=== PATIENT | female | born 1995 | race Hispanic/Latino ===

== ENCOUNTER 2017-03-17 14:12 | Emergency (ER) | payer OTHER, SELFPAY ==
[2017-03-17 15:05] LABS: #Eosinphils 0.1 thou/uL (0.0-0.7); #Lymphocytes 1.2 thou/uL (1.20-3.40); #Monocytes 0.5 thou/uL (0.11-0.59); #Neutrophils 7.5 thou/uL (1.40-6.50); %Basophils 0.3 % (0.0-1.0); %Eosinophils 0.7 % (0.0-10.0); %Lymphocytes 12.8 % (21.0-51.0); %Monocytes 5.6 % (0.0-10.0); Hematocrit 44.4 % (36.0-47.0); Mean Platelet Volume 8.3 fL (7.4-10.4); White Blood Cell (WBC) Count 9.3 thou/uL (4.8-10.8)
[2017-03-17 15:26] LABS: ALT (SGPT) 24 U/L (8-55); AST (SGOT) 22 U/L (5-34); Alkaline Phosphatase 86 U/L (40-150); Anion Gap 12 mmol/L (10-20); BUN (Urea Nitrogen) 11 mg/dL (7.0-18.7); Bilirubin, Total 0.6 mg/dL (0.2-1.2); Calc. Creatinine Clearance 0 mL/min (70-130); Calcium 9.6 mg/dL (7.8-10.44); Carbon Dioxide 23 mmol/L (22-29); Chloride 106 mmol/L (98-107); Estimated GFR-MDRD Greater than 90; Globulin 3.7 g/dL (2.4-3.5); Lipase 23 U/L (8-78)
[2017-03-17 16:45] LABS: Bilirubin Negative (Negative); Blood, Urine Negative (Negative); Glucose, Urine (Dipstick) Negative (Negative); Ketone, Urine Negative (Negative); Nitrite Negative (Negative); Protein, Urine (Dipstick) Negative (Neg-Trace); Urobilinogen 0.2 mg/dL (0.2-1.0)
[2017-03-17] MEDS ORDERED: Ondansetron ODT 4 MG TAB ONE ×2 (17:11→20:59)
[2017-03-17] MEDS ORDERED: Ketorolac Tromethamine 30 MG/ML VIAL ONE (17:11)
--- NOTE | 2017-03-17 18:00 | CT ---
CT OF ABDOMEN AND PELVIS PERFORMED WITH INTRAVENOUS CONTRAST ENHANCEMENT: 03/17/17 HISTORY: Abdominal pain and diarrhea. COMPARISON: A 05/24/15 study. The lung bases are clear. The liver and spleen show no focal abnormalities. The pancreas and gallbladder regions are unremarkab le. The right and left adrenal glands and right and left kidneys are normal in size and appearance. There is no significant periaortic or mesenteric adenopathy. No signs of obstruction. CT OF PELVIS PERFORMED WITH CONTRAST ENHANCEMENT: IUD is in place. There us no evidence of adenopathy or mass. No evidence free fluid. The appendix is normal. Stable appearance to a left femoral neck sclerotic bone lesion which has benign characteristics. IMPRESSION: No acute abnormalities of the abdomen or pelvis. POS: MARLOH
[2017-03-17] MEDS ORDERED: Morphine 4 MG/ML VIAL ONE (18:46)
== END 2017-03-17 21:04 | disposition home or self-care (01) ==
LOC: ERS 14:12
DX: K52.9 Noninfective gastroenteritis and colitis, unspecified (principal); E66.9 Obesity, unspecified
CPT/HCPCS: 36415; 74177; 80053; 81003; 83690; 84703; 85025; 96361; 96374; 96375; J1885; J2270; Q0162

== ENCOUNTER 2017-08-19 22:09 | Emergency (ER) | payer SELFPAY ==
[2017-08-19] MEDS ORDERED: Ondansetron ODT 8 MG TAB ONE (22:42)
== END 2017-08-19 23:20 | disposition home or self-care (01) ==
LOC: ERS 22:09
DX: R11.2 Nausea with vomiting, unspecified (principal); R19.7 Diarrhea, unspecified; E66.9 Obesity, unspecified; Z79.899 Other long term (current) drug therapy
CPT/HCPCS: 99283

== ENCOUNTER 2018-02-27 11:55 | Emergency (ER) | payer OTHER, SELFPAY ==
--- NOTE | 2018-02-27 13:04 | RAD ---
RIGHT KNEE RADIOGRAPHS 4 VIEWS: DATE: 02/27/2018. PROVIDED CLINICAL HISTORY: Right knee pain status post injury. FINDINGS: No evidence for a fracture or other acute osseous abnormality. If there is persistent clinical sonny rn, conservative management and followup imaging are advised. IMPRESSION: As above. POS: VIKTORIA
== END 2018-02-27 13:53 | disposition home or self-care (01) ==
LOC: ERS 11:55
DX: M25.561 Pain in right knee (principal); E66.9 Obesity, unspecified; W51.XXXA Accidental striking against or bumped into by another person, initial encounter

== ENCOUNTER 2019-05-04 22:00 | Day surgery (SDC) | payer OTHER ==
[2019-05-04 22:47] VITALS: BP 133/70; TEMP 97.8; BMI 57.5
[2019-05-04] MEDS ORDERED: FLU VACC QS2019-20(6MOS UP)/PF 60 MCG/0.5 ML SYRINGE IM ONE (23:00)
[2019-05-04 23:17] LABS: Amnisure Test No Membranes Rupture (No Rupture)
[2019-05-04 23:18] LABS: Amnisure Internal Control QC ACCEPTABLE (ACCEPTABLE)
[2019-05-04] MEDS ORDERED: hydrALAZINE 20 MG/ML VIAL SLOW IVP PRN (23:51)
--- NOTE | 2019-05-05 | PDOC.FPROB ---
FMR OB H&P: HPI - History of Present Illness Chief Complaint: leakage of fluids History of Present Illness: 24yo @ 38.3 by 2T US complicated by morbid obesity and GBS + presents for concern for leakage of fluid. States had onset of leakage of fluid @ 1930 yesterday, small intermittent leakage of clear fluid, worse with movement. Denies any vaginal bleeding, change in vaginal discharge. Endorses good good movement. Intermittent contractions that have increased since presentation. No CP, SOB, fever/chills, N/v, abd pain.Does endorse vaginal itching. Sexual intercourse 2 days ago. 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 - Family History Family History: non contributory FMR OB H&P: Medications - Current Home Medications: Medication Instructions Recorded Confirmed Type Vitamin 1 tablet PO DAILY 05/04/19 05/04/19 History Allergies/Adverse Reactions: Allergies Allergy/AdvReac Type Severity Reaction Status Date / Time No Known Allergies Allergy Unverified 05/04/19 22:40 FMR OB H&P: ROS - Review of Systems General: denies: fever/chills, weight/appetite/sleep changes, night sweats Eyes: denies: vision changes ENT: denies: nasal congestion, rhinorrhea Cardiovascular: denies: chest pain, palpitation Respiratory: denies: cough, congestion, shortness of breath Gastrointestinal: denies: abdominal pain, nausea, vomiting, diarrhea Genitourinary (Female): reports: vaginal discharge, contractions. denies: incontinence, dysuria, vaginal bleeding FMR OB H&P: Vital Signs - Maternal Vital signs: Vital Signs - First Documented Temp Pulse Resp BP Pulse Ox 97.8 F 92 18 133/70 100 05/04/19 22:04 05/04/19 22:04 05/04/19 22:04 05/04/19 22:04 05/04/19 22:04 - Heart Tones Baseline: 140 Variability: moderate Acceleration: present Deceleration: absent Category: category 1 [place] contractions every: 3min FMR OB H&P: Physical Exam - Physical Exam General: NAD, awake, alert and oriented HEENT: MMM Neck: supple Heart: RRR, normal S1/S2, no murmurs/rubs/gallops, no edema General: CTAB, no respiratory distress, good air movement, no rales/rhonchi, no wheezing Abdomen: soft, gravid, non-tender, bowel sound present Skin: no rash Psychiatric: intact recent and remote memory, good judgement and insight, normal mood and affect - Pelvic Exam Vulva: normal hair distribution SVE: /-2 FMR OB H&P: Results - Labs Lab results: Laboratory Results - last 24 hr 05/04/19 23:00 Amnio Swab Test No Membranes Rupture FMR OB H&P: A/P - Problem List (1) Term Current Visit: Yes Status: Acute Code(s): Z34.90 - ENCNTR FOR SUPRVSN OF NORMAL , UNSP, UNSP TRIMESTER (2) Morbid obesity Current Visit: Yes Status: Acute Code(s): E66.01 - MORBID (SEVERE) OBESITY DUE TO EXCESS CALORIES Disposition: 24yo @ 38.3 by 2T US complicated by morbid obesity and GBS + presents for concern for leakage of fluid. #Labor check, term SIUP - 38.3wk by 2T US - amnisure obtained and negative - spec exam and no pooling or LOF with cough - VP3 obtained - Cat 1 strip, contractions increased to q3min - appears intact, maternal VSS, will allow ambulation and recheck in 2 hours for change - suspect contractions with bladder loss - dispo pending recheck and monitoring #GBS + - if admitted for labor, will need ppx #Morbid obesity - LGA baby on growth US - monitor - has induction date of 05/11 Dispo: Pending recheck. Discussion: Date/Time: 05/04/19 1968 This H&P was discussed with Dr. Lamar and Dr. Turner who agree with the above documentation and plan. Addendum - Attending - Attending Attestation Date/Time: 05/05/19226 I personally evaluated the patient and discussed the management with Dr. Naun Hardin I agree with the History, Examination, Assessment and Plan documented above with any addition or exceptions noted below- 24yo @ 38.3 by 2T US complicated by morbid obesity and GBS + presents for concern for leakage of fluid. States had onset of leakage of fluid @ 1930 yesterday, small intermittent leakage of clear fluid, worse with movement. Denies any vaginal bleeding, change in vaginal discharge. Endorses good good movement. Intermittent contractions that have increased since presentation. No cervical change after walking x 2 hours. Category 1 FHTs. Will d/c home with labor precautions
[2019-05-05] MEDS ORDERED: Morphine 10 MG/ML VIAL ONE (01:56)
--- NOTE | 2019-05-05 02:06 | PDOC.BPN ---
- Brief Progress Note Patient went walking for 2 hours and was rechecked. No significant cervical change. Patient still 3cm and posterior. Patient with continued contractions. Category I strip. Given no change, patient does not appear to be in labor at this time. Discussed option for pain medication prior to discharge. Patient desires pain medication. 10 mg of morphine given. Will monitor strip for additional time given administration of medication. Patient to be discharged home. Advised to return if contractions get 3-4 minutes apart and strong or if loss of fluid noted. Patient agreeable with plan. Luana Lamar, DO PGY-3
[2019-05-05] MEDS ORDERED: Morphine 10 MG/ML VIAL IM SCH (02:15)
== END 2019-05-05 02:20 | disposition home or self-care (01) ==
LOC: L&D/OP 22:00
PROVIDERS: ATTEND Family Medicine
DX: O99.89 Other specified diseases and conditions complicating pregnancy, childbirth and the puerperium (principal); N89.8 Other specified noninflammatory disorders of vagina; O47.1 False labor at or after 37 completed weeks of gestation; O99.213 Obesity complicating pregnancy, third trimester; E66.01 Morbid (severe) obesity due to excess calories; O99.820 Streptococcus B carrier state complicating pregnancy; Z3A.38 38 weeks gestation of pregnancy
CPT/HCPCS: 84112; 87480; 87510; 87660; 99285; J2270

== ENCOUNTER 2019-05-05 22:29 | Inpatient (IN) | payer OTHER ==
[2019-05-05 22:55] VITALS: BMI 57.5
[2019-05-05] MEDS ORDERED: hydrALAZINE 20 MG/ML VIAL SLOW IVP PRN (23:26)
--- NOTE | 2019-05-05 23:44 | PDOC.FPROB ---
FMR OB H&P: HPI - History of Present Illness Chief Complaint: contractions History of Present Illness: 24yo @ 38.5 by 16.1wk sono US complicated by morbid obesity and GBS + presents contractions. Pt was seen yesterday in L&D triage for similar concerns with leakage of fluid. At that time was found to be amnisure negative and no pooling on spec exam. States she still has occasional, small, intermittent leakage of fluid but no sudden gush. Does endorse thickening of vaginal discharge with mucous and small spotting with wiping after using restroom. States contractions have increased today and at one point were every 1-2min and increased intensity, currently maddi every 4-5min but intensity is still the same. Denies any CP, SOB, fever/chills, n/v, dysuria. Endorses good movement. No BARRY or RUQ pain. States say MFM on 05/03 and was verbally told was ready to delivery when primary OB was comfortable. Primary Care Physician: APARNA Vargas FMR OB H&P: Current - Care : 2 Para: 1001 Gestational age: 38.5 Due date: 05/15/19 Dating Criteria: 2T US - OB Labs Blood type: A RH: positive Antibody Screen: negative HIV: negative RPR: negative HepBsAg: negative Rubella: immune Quad screen: negative 1 hour gtt: neg GBS: positive H&H: 10.9 - Additional Ultrasound Additional: [place] 99% on recent growth US. FMR OB H&P: History - Past Medical History PMH: none - OB History OB History: Previous delivery at term. No complications. 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 - Surgical History Sx History: none - Social History Social History: no tob, illicits, EtOH - Family History Family History: non contributory FMR OB H&P: Medications - Current Home Medications: Medication Instructions Recorded Confirmed Type Vitamin 1 tablet PO DAILY 05/04/19 05/05/19 History Allergies/Adverse Reactions: Allergies Allergy/AdvReac Type Severity Reaction Status Date / Time No Known Allergies Allergy Verified 05/05/19 22:55 FMR OB H&P: ROS - Review of Systems General: denies: fever/chills, weight/appetite/sleep changes, fatigue Eyes: denies: vision changes, double vision, scotomas ENT: denies: nasal congestion, rhinorrhea, sore throat Cardiovascular: denies: chest pain, palpitation Respiratory: denies: cough, congestion, shortness of breath Gastrointestinal: denies: abdominal pain, nausea, vomiting Genitourinary (Female): reports: vaginal discharge, contractions. denies: incontinence, dysuria Integumentary: denies: rash FMR OB H&P: Vital Signs - Maternal Vital signs: BP 142/73, 138/75, 136/71. HR 108, O2 99on RA. - Heart Tones Baseline: 130 Variability: moderate Acceleration: present Deceleration: absent Category: category 1 [place] contractions every: 4-5 min FMR OB H&P: Physical Exam - Physical Exam General: NAD, awake, alert and oriented (breathing through contractions), other (morbid obese) HEENT: PERRLA, EOMI, MMM, conjunctiva clear, other (acanthosis nigricans) Neck: supple, trachea midline Heart: RRR, normal S1/S2, no murmurs/rubs/gallops, pulses present, no edema General: CTAB, no respiratory distress, good air movement, no rales/rhonchi, no wheezing Abdomen: soft, gravid, non-tender, bowel sound present Musculoskeletal: FROM in all four extremities Neurological: no focal deficit Skin: no rash Psychiatric: intact recent and remote memory, good judgement and insight, normal mood and affect FMR OB H&P: A/P - Problem List (1) Morbid obesity Current Visit: No Status: Acute Code(s): E66.01 - MORBID (SEVERE) OBESITY DUE TO EXCESS CALORIES (2) Term Current Visit: No Status: Acute Code(s): Z34.90 - ENCNTR FOR SUPRVSN OF NORMAL , UNSP, UNSP TRIMESTER Disposition: 24yo @ 38.5 by 16.1wk US complicated by morbid obesity and GBS + presents for increased contractions. #Labor check, term SIUP - amnisure and spec exam neg for SROM on labor check yesterday in L&D - VP3 negative yesterday - SVE /-2 @2250, more dilated from yesterday check of /-2 - recheck @0110, -2 - Cat 1 strip, contractions q4-5min with increased intensity - recheck @ 0600, 5/-2 - admit for medical IOL, augmentation with pit - desires epidural - cont to monitor with q2h checks #gHTN, new diagnosis - BP 142/73 at presentation, over 4 hours apart had elevated by of SBP 155 - declared as gHTN - no previous history of gHTN or PreE - risk factors with morbid obesity - CBC, CMP obtained and WNL - Urine Pr/Cr 0.14 - gHTN indication for medical IOL @ >37wks #GBS + - Yoshi #Morbid obesity - LGA baby on growth US - has induction date of 05/11 - followed by MFM and seen on 05/03, verbal report from pt that infant >95% [place] and no mention of any problems with fluid, or on BPP #No history of GC/C testing - will obtain urine PCR Dispo: gHTN indication for medical IOL. Will admit for IOL. Discussion: Date/Time: 05/05/19 6088 This H&P was discussed with Dr. Lamar and Dr. Cali who agree with the above documentation and plan. Addendum - Attending - Attending Attestation Date/Time: 05/06/19 0665 I personally evaluated the patient and discussed the management with Dr. Hardin I agree with the History, Examination, Assessment and Plan documented above with any addition or exceptions noted below. present for labor r/o. Ctx unresolved with IV fluids stadol. Patient changed from 4 cm ->5 cm. Baseline SBP high 130s. Patient has now had 3 SBP >140 (142, 148, 155). Will admit for medical IOL/augmentation of labor for new diagnosis of gHTN. Patient has concern for LGA infant on last MFM report and recommended no prolonged second stage of labor or operative vaginal delivery. If patient has difficulty with descent or pushing, will have low threshold to proceed with pLTCS. GBS positive, PNC started at time of decision for admission. Pitocin for labor augmentation as needed.
[2019-05-06 00:10] LABS: #Basophils 0.1 thou/uL (0.0-0.2); #Lymphocytes 2.1 thou/uL (1.20-3.40); #Monocytes 0.7 thou/uL (0.11-0.59); %Basophils 0.8 % (0.0-1.0); %Eosinophils 0.5 % (0.0-10.0); %Lymphocytes 23.6 % (21.0-51.0); %Neutrophils 67.2 % (42.0-75.0); Hemoglobin 11.2 g/dL (12.0-16.0); Mean Corpuscular HGB CONC 34.2 g/dL (32.0-36.0); Mean Corpuscular Hemoglobin 27.2 pg (27.0-31.0); Mean Corpuscular Volume 79.3 fL (78.0-98.0); Mean Platelet Volume 8.7 fL (7.4-10.4); Platelet Count 234 thou/uL (130-400); RBC Distribution Width 15.3 % (11.5-14.5); Red Blood Cell (RBC) Count 4.11 mill/uL (4.20-5.40)
[2019-05-06 00:28] LABS: ALT (SGPT) 12 U/L (8-55); AST (SGOT) 15 U/L (5-34); Albumin 3.3 g/dL (3.5-5.0); Alkaline Phosphatase 131 U/L (40-110); Anion Gap 13 mmol/L (10-20); BUN (Urea Nitrogen) 10 mg/dL (7.0-18.7); Bilirubin, Total 0.2 mg/dL (0.2-1.2); Calc. Creatinine Clearance 334 mL/min (70-130); Calcium 9.4 mg/dL (7.8-10.44); Carbon Dioxide 22 mmol/L (22-29); Chloride 106 mmol/L (98-107); Estimated GFR-MDRD Greater than 90; Globulin 3.5 g/dL (2.4-3.5); Glucose 94 mg/dL (70-105); Potassium 4.5 mmol/L (3.5-5.1); Protein, Total 6.8 g/dL (6.0-8.3); Sodium 136 mmol/L (136-145)
[2019-05-06 00:54] LABS: Creatinine, Urine 273.61 mg/dL (47-110)
[2019-05-06] MEDS ORDERED: Butorphanol Tartrate 1 MG/ML VIAL SLOW IVP SCH (04:15)
[2019-05-06] MEDS ORDERED: NS / Oxytocin 40 units/1000ml 1,000 ML IV PRN (05:52)
[2019-05-06] MEDS ORDERED: Promethazine HCl 25 MG/ML VIAL IM PRN ×2 (05:52→11:07)
[2019-05-06] MEDS ORDERED: Ondansetron PF 4 MG/2 ML Vial IVP PRN ×2 (05:52→11:07)
[2019-05-06] MEDS ORDERED: Lidocaine 1% (PF) 30 ML VIAL SC PRN (05:52)
[2019-05-06] MEDS ORDERED: Acetaminophen 500 MG TAB PO PRN (05:52)
[2019-05-06] MEDS ORDERED: Ibuprofen 800 MG TAB PO PRN (05:52)
[2019-05-06] MEDS ORDERED: hydrALAZINE 20 MG/ML VIAL SLOW IVP PRN (05:52)
[2019-05-06] MEDS ORDERED: Butorphanol Tartrate 1 MG/ML VIAL SLOW IVP PRN (05:52)
[2019-05-06] MEDS ORDERED: Penicillin G Potassium 5 MILL.UNITS in Sodium Chloride 0.9% 100 ML IVPB SCH (06:00)
[2019-05-06 07:04] LABS: Syphilis Antibody Nonreactive (Nonreactive); Syphilis Antibody Index 0.19 S/CO (<1.00 Non-Reactive)
[2019-05-06 07:08] LABS: HBSAg Index 0.15 S/CO (0-0.99); Hep B Surf Ag Non-Reactive S/CO (NonReactive)
[2019-05-06] MEDS: NS w/ Oxytocin 10 units 500 ML IV SCH (08:27)
[2019-05-06] MEDS ORDERED: Fentanyl 4 mcg/Bup 0.1% Cadd 100 ML ONE ×2 (09:23→17:51)
[2019-05-06] MEDS: Lactated Ringer's 1,000 ML IV SCH (10:58)
[2019-05-06] MEDS ORDERED: Naloxone HCl 0.4 mg/ml Vial IVP PRN ×2 (11:07)
[2019-05-06] MEDS ORDERED: Acetaminophen 325 MG TAB PO PRN (11:07)
[2019-05-06] MEDS ORDERED: Lactated Ringer's 500 ML IV PRN (11:07)
[2019-05-06] MEDS ORDERED: EPHEDRINE 25 MG/5 ML SYRINGE SLOW IVP PRN (11:07)
[2019-05-06] MEDS ORDERED: Communication Order-Pharmacy FS SCH (11:15)
[2019-05-06] MEDS: Penicillin G 2.5 MILL.units 2.5 MILL.UNITS in Premix Bag 1 BAG IVPB SCH ×2 (12:05→16:15)
--- NOTE | 2019-05-06 14:37 | PDOC.LDPN ---
Labor & Delivery Progress Note - Subjective Subjective: comfortable - Objective Vital signs reviewed and normal: yes General: NAD Uterine fundus: non tender SVE: /-2 Dilation: 5 Effacement: 50% Station: -2 FHT: category 1 Resuscitative measures: maternal IV fluids, maternal position change Plan: continue plan of care, pitocin for augmentation -: 24yo @ 38.5 by 16.1wk US complicated by morbid obesity and GBS + presents for increased contractions. #Labor check, term SIUP - amnisure and spec exam neg for SROM on labor check 2 days ago in L&D - VP3 negative 2 days ago - SVE /-2 @ 1230 -VSS - continue pit - has epidural - cont to monitor with q4h checks #gHTN, new diagnosis - BP 142/73 at presentation, over 4 hours apart had elevated by of SBP 155 - declared as gHTN - no previous history of gHTN or PreE - risk factors with morbid obesity - CBC, CMP obtained and WNL - Urine Pr/Cr 0.14 - gHTN indication for medical IOL @ >37wks #GBS + - Yoshi #Morbid obesity - LGA baby on growth US - has induction date of 05/11 - followed by MFM and seen on 05/03, verbal report from pt that >95% [place] and no mention of any problems with fluid, or on BPP #No history of GC/C testing - will obtain urine PCR Dispo: gHTN indication for medical IOL. Will admit for IOL.
--- NOTE | 2019-05-06 17:23 | PDOC.LDPN ---
Labor & Delivery Progress Note - Subjective Subjective: other (Having a headache and nausea from not eating) - Objective Vital signs reviewed and normal: yes General: NAD, resting Uterine fundus: non tender SVE: /-2 Dilation: 5 Effacement: 75% Station: -2 FHT: category 1 [place] contractions every: 2-3 minutes with 5 minute pauses every once in awhile - Assessment (1) Morbid obesity Code(s): E66.01 - MORBID (SEVERE) OBESITY DUE TO EXCESS CALORIES Current Visit : No Status: Acute (2) Term Code(s): Z34.90 - ENCNTR FOR SUPRVSN OF NORMAL , UNSP, UNSP TRIMESTER Current Visit: No Status: Acute Plan: continue plan of care, pitocin for augmentation -: 24yo @ 38.5 by 16.1wk US complicated by morbid obesity and GBS + presents for increased contractions. #Labor check, term SIUP - amnisure and spec exam neg for SROM on labor check 2 days ago in L&D - VP3 negative 2 days ago - SVE /-2 @ 1230, /-2 @ 1700 -VSS - continue pit - has epidural - cont to monitor with q4h checks #gHTN, new diagnosis - BP 142/73 at presentation, over 4 hours apart had elevated by of SBP 155 - declared as gHTN - no previous history of gHTN or PreE - risk factors with morbid obesity - CBC, CMP obtained and WNL - Urine Pr/Cr 0.14 - gHTN indication for medical IOL @ >37wks #GBS + - Yoshi #Morbid obesity - LGA baby on growth US - has induction date of 05/11 - followed by MFM and seen on 05/03, verbal report from pt that infant >95% [place] and no mention of any problems with fluid, or on BPP #No history of GC/C testing - will obtain urine PCR Dispo: gHTN indication for medical IOL. Continue pitocin titration.
[2019-05-06] MEDS: Fentanyl 4 mcg/Bupivacaine 0.1% Cassette 100 ML EPIDURAL SCH (18:23)
[2019-05-06] MEDS: diphenhydrAMINE 50 MG/ML VIAL IVP PRN (19:05)
--- NOTE | 2019-05-06 19:46 | PDOC.LDPN ---
Labor & Delivery Progress Note - Subjective Subjective: comfortable - Objective Vital signs reviewed and normal: yes General: NAD, resting Uterine fundus: non tender SVE: 1915 Dilation: 5 Effacement: 75% Station: -2 FHT: category 1, variability present [place] contractions every: Q2-4M AROM: clear fluid IUPC placed: yes FSE placed: yes - Assessment (1) Morbid obesity Code(s): E66.01 - MORBID (SEVERE) OBESITY DUE TO EXCESS CALORIES Current Visit : No Status: Acute (2) Term Code(s): Z34.90 - ENCNTR FOR SUPRVSN OF NORMAL , UNSP, UNSP TRIMESTER Current Visit: No Status: Acute Plan: continue plan of care, pitocin for augmentation -: Patient is a 24 y/o @ 38.5W by 16.1W US whose is complicated by morbid obesity and GBS + who presents to L&D for CTX. #Labor Check, Term SIUP - Amnisure and spec exam negative for SROM on labor check 2 days prior in L&D - VP3 (05/04): Negative - SVE: 5/60/-2 @ 1230 - SVE: 5/70/-2 @ 1700 - SVE: 575/-2 @ 1900 - VSS - Continue Pitocin - Epidural in place - Continue to monitor with Q2H checks #gHTN, New Diagnosis - BP: 142/73 at presentation, over 4 hours apart had elevated by of SBP 155 - Declared as gHTN - No previous history of gHTN or PreE - Risk factors with morbid obesity - CBC, CMP obtained and WNL - Urine Pr/Cr 0.14 - gHTN indication for medical IOL @ >37wks #GBS + - Penicillin G x3 #Morbid obesity - LGA baby on Growth US - Had induction date of 05/11 -Ffollowed by MFM and seen on 05/03, verbal report from Patient is that > 95% [place] and no mention of any problems with fluid, BPP #No history of GC/C testing - Will obtain Urine PCR Dispo: Patient is stable and admitted to L&D for IOL 2/2 gHTN. Continue with Pitocin titration, monitor IUPC for CTx strength and FSE for Vital Signs.
--- NOTE | 2019-05-06 21:33 | PDOC.LDPN ---
Labor & Delivery Progress Note - Subjective Subjective: comfortable, vaginal pressure - Objective Vital signs reviewed and normal: yes General: NAD, resting, breathing through contractions Uterine fundus: non tender SVE: 2114 Dilation: 6 Effacement: 75% Station: -1 FHT: category 1 [place] contractions every: Q4-6M IUPC placed: yes FSE placed: yes - Assessment (1) Morbid obesity Code(s): E66.01 - MORBID (SEVERE) OBESITY DUE TO EXCESS CALORIES Current Visit : No Status: Acute (2) Term Code(s): Z34.90 - ENCNTR FOR SUPRVSN OF NORMAL , UNSP, UNSP TRIMESTER Current Visit: No Status: Acute Plan: continue plan of care, pitocin for augmentation -: Patient is a 24 y/o @ 38.5W by 16.1W US whose is complicated by morbid obesity and GBS + who presents to L&D for CTX. #Labor Check, Term SIUP - Amnisure and spec exam negative for SROM on labor check 2 days prior in L&D - VP3 (05/04): Negative - SVE: 5/60/-2 @ 1230 - SVE: 70/-2 @ 1700 - SVE: 75/-2 @ 1900 - SVE: /-1 @5 - VSS - Continue Pitocin - Epidural in place - IUPC in place - FSE in place - Continue to monitor with Q2H checks #gHTN, New Diagnosis - BP: 142/73 at presentation, over 4 hours apart had elevated by of SBP 155 - no severe-range pressures since last SVE - Declared as gHTN - No previous history of gHTN or PreE - Risk factors include morbid obesity - CBC, CMP obtained and WNL - Urine Pr/Cr 0.14 - gHTN indication for medical IOL @ >37wks #GBS + - Penicillin G x3 #Morbid obesity - LGA baby on Growth US - Had induction date of 05/11 - Followed by MFM and seen on 05/03, verbal report from Patient is that > 95% [place] and no mention of any problems with fluid, BPP #No history of GC/C testing - Will obtain Urine PCR Dispo: Patient is stable and admitted to L&D for IOL 2/2 gHTN. Continue with Pitocin titration, monitor IUPC for CTx strength and FSE for Vital Signs.
--- NOTE | 2019-05-06 23:38 | PDOC.LDPN ---
Labor & Delivery Progress Note - Subjective Subjective: comfortable - Objective General: NAD - Assessment (1) Morbid obesity Code(s): E66.01 - MORBID (SEVERE) OBESITY DUE TO EXCESS CALORIES Current Visit : No Status: Acute (2) Term Code(s): Z34.90 - ENCNTR FOR SUPRVSN OF NORMAL , UNSP, UNSP TRIMESTER Current Visit: No Status: Acute -: Patient is a 24 y/o @ 38.5W by 16.1W US whose is complicated by morbid obesity and GBS + who presents to L&D for CTX. #Labor Check, Term SIUP - Amnisure and spec exam negative for SROM on labor check 2 days prior in L&D - VP3 (05/04): Negative - SVE: 60/-2 @ 1230 - SVE: /-2 @ 1700 - SVE: /-2 @ 1900 - SVE: 80/-1 @2115 - SVE: 9/100/0 @ 2315 - VSS - Continue Pitocin - Epidural in place - IUPC in place - FSE in place - Continue to monitor with Q2H checks #gHTN, New Diagnosis - BP: 142/73 at presentation, over 4 hours apart had elevated by of SBP 155 - no severe-range pressures since last SVE - Declared as gHTN - No previous history of gHTN or PreE - Risk factors include morbid obesity - CBC, CMP obtained and WNL - Urine Pr/Cr 0.14 - gHTN indication for medical IOL @ >37wks #GBS + - Penicillin G x3 #Morbid obesity - LGA baby on Growth - Had induction date of 05/11 - Followed by MFM and seen on 05/03, verbal report from Patient is that infant > 95% [place] and no mention of any problems with fluid, BPP #No history of GC/C testing - Will obtain Urine PCR Dispo: Patient is stable and admitted to L&D for IOL 2/2 gHTN. Continue with Pitocin titration, monitor IUPC for CTx strength and FSE for Vital Signs.
[2019-05-07] MEDS: Penicillin G 2.5 MILL.units 2.5 MILL.UNITS in Premix Bag 1 BAG IVPB SCH ×4 (00:49→12:38)
[2019-05-07] MEDS ORDERED: Fentanyl 4 mcg/Bup 0.1% Cadd 100 ML ONE ×2 (01:31→07:36)
--- NOTE | 2019-05-07 01:33 | PDOC.EVN ---
Event Note - Event Note Event Note: FHT: baseline 140, no decels, accels present moderate variability [place]: cxns q 4 pit at 4 SVE: complete, zero station Pit had to be turned off for 1 hour period 2/2 urgent on the unit Pit was turned back on as soon as possible Patient now complete will titrate up on pit and begin pushing as soon as contractions and situation allows ATTENDING ADDENDUM: I evaluated the patient at approximately 0200. Still anterior lip.
[2019-05-07] MEDS: Fentanyl 4 mcg/Bupivacaine 0.1% Cassette 100 ML EPIDURAL SCH ×2 (02:30→07:46)
--- NOTE | 2019-05-07 02:46 | PDOC.LDPN ---
Labor & Delivery Progress Note - Assessment (1) Morbid obesity Code(s): E66.01 - MORBID (SEVERE) OBESITY DUE TO EXCESS CALORIES Current Visit : No Status: Acute (2) Term Code(s): Z34.90 - ENCNTR FOR SUPRVSN OF NORMAL , UNSP, UNSP TRIMESTER Current Visit: No Status: Acute -: FHT: baseline 140, no decels, accels present, moderate variability [place]: cxns q4 pit at 8 SVE: anterior lip, zero station On attending exam, SVE was anterior lip and not reducible Will continue to titrate up on pitocin
--- NOTE | 2019-05-07 04:23 | PDOC.LDPN ---
Labor & Delivery Progress Note - Assessment (1) Morbid obesity Code(s): E66.01 - MORBID (SEVERE) OBESITY DUE TO EXCESS CALORIES Current Visit : No Status: Acute (2) Term Code(s): Z34.90 - ENCNTR FOR SUPRVSN OF NORMAL , UNSP, UNSP TRIMESTER Current Visit: No Status: Acute -: FHT: baseline 150, no decels, accels present, moderate variability [place]: cxns q3 pit at 8 SVE: anterior lip, +1 Will continue to titrate up on pitocin
[2019-05-07] MEDS: NS w/ Oxytocin 10 units 500 ML IV SCH (05:25)
--- NOTE | 2019-05-07 07:06 | PDOC.BPN ---
- Brief Progress Note Patient is a 24 y/o @ 38.6W by 16.1W US whose is complicated by morbid obesity and GBS + who presented to L&D for CTX. #Labor Check, Term SIUP - Amnisure and spec exam negative for SROM on labor check 2 days prior in L&D - VP3 (05/04): Negative - SVE: 5/60/-2 @ 1230 - SVE: 5/70/-2 @ 1700 - SVE: 5/75/-2 @ 1900, AROM, clear fluid - SVE: 6/80/-1 @2115 - SVE: 9/100/0 @ 2315 -> pit stopped / emergent c/s in another patient on the floor, was on 20 - SVE: 9.5/100/0 @ 0130 - SVE: 9.5/100/0 @ 0230 - SVE: 9.5/100/+1 @ 0415 - SVE 9.5/100/+1 @ 0645, pit back to 18 - Epidural in place - IUPC in place - FSE in place #gHTN, - BP: 142/73 at presentation, over 4 hours apart had elevated by of SBP 155 - no severe-range pressures since last SVE - No previous history of gHTN or PreE - Risk factors include morbid obesity - CBC, CMP obtained and WNL - Urine Pr/Cr 0.14 - gHTN indication for medical IOL @ >37wks #GBS + - Penicillin, adequate #Morbid obesity - LGA baby on Growth US - Had induction date of 05/11 - Followed by MFM and seen on 05/03, rec'd avoiding operative delivery if possible #No history of GC/C testing - urine pending FHT: baseline 150, no decels, accels present, moderate variability [place]: cxns q3
[2019-05-07] MEDS ORDERED: Bicitra 30 ML UDCUP ONE (08:45)
[2019-05-07] MEDS ORDERED: Azithromycin 500 MG VIAL ONE (08:45)
[2019-05-07] MEDS ORDERED: Azithromycin 500 MG in Sodium Chloride 0.9% 250 ML 250 ML IVPB SCH (09:00)
[2019-05-07] MEDS ORDERED: Bicitra 30 ML UDCUP PO SCH (09:00)
[2019-05-07] MEDS ORDERED: CEFAZOLIN 3 GM in Sodium Chloride 0.9% 100 ML IVPB SCH (09:00)
[2019-05-07] MEDS ORDERED: Lidocaine 2% 10 ML INJ ONE (09:36)
[2019-05-07] MEDS ORDERED: EPINEPHrine 1 MG/ML AMP ONE (09:36)
[2019-05-07] MEDS ORDERED: MORPHINE 5 MG/10 ML PF VIAL ONE (10:04)
[2019-05-07] MEDS ORDERED: Oxytocin 10 UNITS/ML VIAL ONE ×2 (10:05)
[2019-05-07] MEDS ORDERED: PHENYLEPHRINE-NS 100 MCG/ML 10 ML SYRINGE ONE (10:08)
[2019-05-07] MEDS ORDERED: Ondansetron PF 4 MG/2 ML Vial ONE (10:08)
[2019-05-07] MEDS ORDERED: Ketorolac Tromethamine 30 MG/ML VIAL ONE (10:08)
[2019-05-07] MEDS ORDERED: Simethicone Chewable 80 MG TAB PO PRN (11:11)
[2019-05-07] MEDS ORDERED: Misoprostol 200 MCG TAB PR PRN (11:11)
[2019-05-07] MEDS ORDERED: diphenhydrAMINE 25 MG CAP PO PRN (11:11)
[2019-05-07] MEDS ORDERED: Methylergonovine 0.2 MG TAB PO PRN (11:11)
[2019-05-07] MEDS ORDERED: Methylergonovine 0.2 MG/ML VIAL IM PRN (11:11)
[2019-05-07] MEDS ORDERED: Adacel (T-DAP) 0.5 ML SYRINGE IM ONE (11:11)
[2019-05-07] MEDS ORDERED: Bisacodyl 10 MG SUPP PR PRN (11:11)
[2019-05-07] MEDS ORDERED: Lanolin Ointment 7 GM TUBE TOP PRN (11:11)
[2019-05-07] MEDS ORDERED: HYDROcodone/Acetaminophen 5/325 mg Tablet PO PRN ×2 (11:11)
--- NOTE | 2019-05-07 11:25 | PDOC.OPDEL ---
OB Operative/Delivery Note Delivery Dr/Surgeon: Dr. Vital and Dr. Nboles with Dr. Cali attending Assist: Dr. Sunil Hardin Pre-Delivery Diagnosis: medically indicated induction (for gHTN) Procedure/Post Delivery Dx: primary low transverse CS (for arrest of dilation) Weeks gestation: 38 (38w6d) Anesthesia: epidural - Findings A Sex: female Weight: 4.22 kg - 1 min: 8 - 5 min: 9 - Additional Findings/Plan Placenta delivered: manual removal findings: low transverse hysterotomy with extension (small left cervical extension), normal uterus, normal tubes, normal ovaries Estimated blood loss: 345mL Compilations/Other Findings: Preoperative Diagnosis: 1)Term intrauterine 2)Failure to Progress (arrest of dilation) 3)Gestational Hypertension 4)GBS positive 5)Morbid Obesity Postoperative Diagnosis: 1)Term intrauterine 2)Failure to Progress (arrest of dilation) 3)Gestational Hypertension 4)GBS positive 5)Morbid Obesity 6)Small left sided cervical extension 7)LGA infant Anesthesia: spinal Indications: The patient is a 24 year old female at 38.6 weeks gestation who presented to L&D and was found to have elevated blood pressures and diagnosed with gestational HTN. She had an induction of labor that resulted in arrest of dilation and failure to progress. The decision was made to proceed to pLTCS as a result of this. Procedure in Detail: After risks, benefits, and alternatives were explained to the patient, she gave informed consent. Pre-operative antibiotics included Cefazolin 3 gram IV and Azithromycin 500mg IV. The patient was taken to the operating room and spinal anesthesia was initiated. She was placed in the supine position with a left tilt and prepped and draped in usual sterile fashion. A Pfannenstiel incision was made with a scalpel and carried down to the level of the fascia which was sharply nicked. The fascial cut was extended bilaterally with Flores scissors. The inferior and superior edges of the cut fascial edges were elevated with Pamela clamps and the underlying rectus muscles were sharply and bluntly dissected free. The recti were divided digitally and retracted manually. The peritoneum was entered bluntly and retracted manually. Jatin O retractor was placed. A low transverse score was made with the scalpel and the uterus was entered in the midline bluntly. Clear fluid was seen. The hysterotomy was extended manually in a cephalocaudal fashion. The infant was noted to be vertex in the occipitoposterior position and was delivered by fundal pressure. Mouth and nares were bulb suctioned. Cord clamped and cut and grossly normal female was handed to waiting nurse. Cord blood was obtained. Placenta was manually extracted, found to be intact with 3 vessel cord and discarded. The uterus was externalized and the endometrium was curetted with a dry lap. The hysterotomy was noted to have a small L sided cervical extension that did not involve the uterine vessels. The uterus was closed with a running locking #1 Monocryl followed by a running non- locking #1 Monocryl imbricating suture. Following this hemostasis was noted. The uterus was internalized and the jatin O retractor was removed and the hysterotomy was again noted to be hemostatic. The rectus was examined and found to have no bleeders. The fascia was closed with a running non-locking 0-PDS suture. The subcutaneous tissue was irrigated and there were a few bleeders that were cauterized with the bovie. The subcutaneous tissue was approximated with running, non-locking 3-0 plaingut. The skin was approximated with armond and a Joshua wound vac was placed. All counts were correct. The patient tolerated the procedure well and was taken to the recovery room in stable condition. Quantitative Blood Loss: 345 ml Complications: None Specimens: Cord blood sent to lab for blood type Findings: Grossly normal female with apgars of 8&9 at 1 and 5 minutes respectively. Grossly normal placenta with 3 vessel cord discarded. Drains: Xavier to gravity draining clear urine Post delivery plan: routine recovery (ATTENDING ADDENDUM: I was present for the entire case and agree with the above documentation.)
[2019-05-07] MEDS ORDERED: diphenhydrAMINE 50 MG/ML VIAL IVP PRN (11:41)
[2019-05-07] MEDS ORDERED: Naloxone HCl 0.4 mg/ml Vial IVP PRN ×2 (11:41)
[2019-05-07] MEDS ORDERED: Promethazine HCl 25 MG SUPP PR PRN (11:41)
[2019-05-07] MEDS ORDERED: Ondansetron PF 4 MG/2 ML Vial IVP PRN (11:41)
[2019-05-07] MEDS ORDERED: Promethazine HCl 25 MG/ML VIAL IM PRN (11:41)
[2019-05-07] MEDS ORDERED: Ondansetron HCl/PF 4 MG/2 ML Vial IVP PRN ×2 (11:41→12:39)
[2019-05-07] MEDS ORDERED: Naloxone HCl 0.4 mg/ml Vial IV PRN (11:41)
[2019-05-07] MEDS ORDERED: Communication Order-Pharmacy FS SCH (11:45)
[2019-05-07 12:17] LABS: INR-International Normal Ratio 1.1; Prothrombin Time 13.8 SEC (12.0-14.7)
[2019-05-07 12:18] LABS: PTT 31.9 SEC (22.9-36.1)
[2019-05-07] MEDS ORDERED: L&D-Morphine 4 MG/ML VIAL SLOW IVP PRN (12:39)
[2019-05-07] MEDS ORDERED: Meperidine HCl/PF 25 MG/ML VIAL SLOW IVP PRN (12:39)
[2019-05-07] MEDS ORDERED: HYDROmorphone 2 MG/ML VIAL SLOW IVP PRN (12:39)
[2019-05-07] MEDS ORDERED: Ketorolac Tromethamine 30 MG/ML VIAL IVP SCH (12:45)
[2019-05-07] MEDS ORDERED: Morphine 4 MG/ML VIAL ONE (13:12)
[2019-05-07] MEDS: Acetaminophen 650 MG Suppository PR SCH ×2 (13:22→18:05)
[2019-05-07] MEDS: Lactated Ringer's 1,000 ML IV SCH ×6 (13:49→22:32)
[2019-05-07] MEDS: diphenhydrAMINE 50 MG/ML VIAL IVP PRN (14:58)
--- NOTE | 2019-05-07 17:06 | PDOC.BPN ---
- Brief Progress Note Evaluated pt on POD#0 S: Doing well. Reports pain is 8/10, but wasn't wanting to ask for pain medication. She has not ambulated yet, but she is tolerating clear liquids. O: AFVSS PE: Gen - alert, NAD Abd - soft, appropriately tender to palpation Skin - wound vac in place with no bleeding through dressing Ext - no edema, SCD's in place A/P: s/p section and gestational HTN -Continue routine care -PNV -Toradol and acetaminophen for pain overnight and will be able to give norco prn 12 hours after surgery -Continue wound vac -Lovenox scheduled to be given 12 hours postop -Continue to monitor BP's
[2019-05-07] MEDS: Ketorolac Tromethamine 30 MG/ML VIAL IVP PRN ×2 (17:07→22:29)
[2019-05-07] MEDS ORDERED: Enoxaparin Sodium 40 MG/0.4 ML SYRINGE SC SCH (21:00)
[2019-05-07] MEDS: Docusate Calcium (SURFAK) 240 MG CAP PO SCH (21:43)
[2019-05-07] MEDS: Enoxaparin Sodium 60 MG/0.6 ML SYRINGE SC SCH (21:43)
[2019-05-08 00:09] LABS: Chlam.trachomatis by PCR,Urine Not Detected (NotDetected)
[2019-05-08] MEDS: Acetaminophen 500 MG TAB PO SCH ×4 (01:40→21:38)
[2019-05-08] MEDS: Ketorolac Tromethamine 30 MG/ML VIAL IVP PRN (04:42)
[2019-05-08 05:19] LABS: Hemoglobin 9.1 g/dL (12.0-16.0); Mean Corpuscular HGB CONC 32.4 g/dL (32.0-36.0); Mean Corpuscular Hemoglobin 25.9 pg (27.0-31.0); Mean Platelet Volume 8.7 fL (7.4-10.4); Platelet Count 163 thou/uL (130-400); RBC Distribution Width 15.2 % (11.5-14.5); Red Blood Cell (RBC) Count 3.51 mill/uL (4.20-5.40); White Blood Cell (WBC) Count 9.8 thou/uL (4.8-10.8)
--- NOTE | 2019-05-08 07:16 | PDOC.PP ---
Post Progress Note Post Day #: 1 Subjective: Patient resting comfortably in bed. Patient states she has not really been able to walk around much yet. She is tolerating PO but has been eating mostly broth and crackers since yesterday. She is passing flatus. States her pain has been controlled with the pain medication. She is worried about as she has not been producing much yet. PO intake tolerated: yes Flatus: yes Ambulation: no Vital Signs (12 hours) Temp Pulse Resp Pulse Ox 05/07/19 23:00 98.3 F 90 18 98 05/07/19 20:00 99 Weight Weight 147.418 kg - Physical Examination General: NAD Cardiovascular: no m/r/g, RRR Respiratory: clear to auscultation bilaterally, non-labored breathing Abdominal: + bowel sounds, lochia (minimal), no distention, appropriately TTP Fundus firm & at: umbilicus Skin: CS incision dry & intact, no rash Deviation from normal: inverted right nipple Psychiatric: A&Ox3, normal affect Result Diagrams: 05/08/19 05:00 05/06/19 00:01 Additional Labs: Post Labs Blood Type A POSITIVE 05/06/19 06:18 Hep Bs Antigen Non-Reactive S/CO (NonReactive) 05/06/19 06:18 (1) Morbid obesity Code(s): E66.01 - MORBID (SEVERE) OBESITY DUE TO EXCESS CALORIES Status: Acute (2) Term Code(s): Z34.90 - ENCNTR FOR SUPRVSN OF NORMAL , UNSP, UNSP TRIMESTER Status: Acute - Assessment/Plan 24yo [id number] who delivered viable F @ 38.6wks on 05/07 @ 1028 via pLTCS due to failure to progress. #Term delivery of sIUP - Routine PP care - Tylenol/motrin PRN for pain, [place] available for severe pain. - H/H this AM appropriate drop, patient asymptomatic. - Wound vac in place - cl/dr/intact - . consult in place. Patient with inverted nipple on right. - Tolerating PO. Encouraged ambulation today. Passing flatus. GBS Bacteruria - adequately treated gHTN - BPs have been at goal. Will continue to monitor. DVT Ppx: lovenox BID Dispo: likely dc 05/09, recovering well Case discussed with Dr. Cali Addendum - Attending - Attending Attestation Date/Time: 05/08/19 6730 I personally evaluated the patient and discussed the management with Dr. Vargas. I agree with the History, Examination, Assessment and Plan documented above with any addition or exceptions noted below. Obs today. D/C tomorrow.
[2019-05-08] MEDS: Enoxaparin Sodium 60 MG/0.6 ML SYRINGE SC SCH ×2 (08:02→21:20)
[2019-05-08] MEDS: Prenatal Vitamin 1 TAB PO SCH (08:02)
[2019-05-08] MEDS: Docusate Calcium (SURFAK) 240 MG CAP PO SCH ×2 (08:02→21:13)
[2019-05-08] MEDS ORDERED: Acetaminophen 325 MG Suppository PR SCH ×2 (18:45→23:59)
[2019-05-08] MEDS ORDERED: Acetaminophen 650 MG Suppository PR SCH (19:00)
[2019-05-08] MEDS ORDERED: Hydrocodone-Acetamin 15 ML UDCUP PO PRN ×2 (22:35→22:45)
[2019-05-09] MEDS: Acetaminophen 650 MG Suppository PR SCH ×5 (01:30→23:24)
--- NOTE | 2019-05-09 07:45 | PDOC.PP ---
Post Progress Note Post Day #: 2 Subjective: Patient resting comfortably in bed. No complaints or concerns. She was able to walk around more yesterday. Tolerating PO. Passing gas, no BM yet. She talked with education sales consultant yesterday but has decided to formula feed only. minimal lochia. Denies any fever, chills, NVD, chest or abdominal pain. She is using the heating pad over incision site and says this helps. Pain has been controlled without pain medications. PO intake tolerated: yes Flatus: yes Ambulation: yes Vital Signs (12 hours) Temp Pulse Resp BP Pulse Ox 05/09/19 03:31 99.4 F 96 18 142/78 H 05/09/19 00:42 98.5 F 89 20 147/86 H 05/08/19 20:09 98.8 F 93 16 144/74 H 98 Weight Weight 147.418 kg - Physical Examination General: NAD Cardiovascular: no m/r/g, RRR Respiratory: clear to auscultation bilaterally, non-labored breathing Abdominal: + bowel sounds, lochia, no distention, appropriately TTP Fundus firm & at: umbilicus Skin: CS incision dry & intact Psychiatric: A&Ox3, normal affect Result Diagrams: 05/08/19 05:00 05/09/19 09:46 Additional Labs: Post Labs Blood Type A POSITIVE 05/06/19 06:18 Hep Bs Antigen Non-Reactive S/CO (NonReactive) 05/06/19 06:18 (1) Morbid obesity Code(s): E66.01 - MORBID (SEVERE) OBESITY DUE TO EXCESS CALORIES Status: Acute (2) Term Code(s): Z34.90 - ENCNTR FOR SUPRVSN OF NORMAL , UNSP, UNSP TRIMESTER Status: Acute - Assessment/Plan 24yo [id number] who delivered viable F @ 38.6wks on 05/07 @ 1028 via pLTCS due to failure to progress. #Term delivery of sIUP - Routine PP care - Tylenol/motrin PRN for pain, [place] available for severe pain. Pain has been controlled without medications. using heating pad for pain currently. - H/H appropriate drop, patient asymptomatic. - Wound vac in place - cl/dr/intact. - Tolerating PO. Encouraged ambulation. Passing flatus. GBS Bacteruria - adequately treated gHTN - BPs mildly elevated overnight 140s/70s. Will continue to monitor. If pressures remain elevated can consider starting BP meds. DVT Ppx: lovenox BID Dispo: likely discharge today or tomorrow Case discussed with Dr. Cali Addendum - Attending - Attending Attestation Date/Time: 05/09/19 9909 I personally evaluated the patient and discussed the management with Dr. Vargas I agree with the History, Examination, Assessment and Plan documented above with any addition or exceptions noted below. Check CMP and uric acid due to elevated BP. Patient stated she has not been taking pain meds and was not scheduled ibuprofen. Added ibuprofen today and encouraged to take pain medications. Observe overnight. If severe range BP or features, will start IV Mg.
[2019-05-09] MEDS ORDERED: Milk Of Magnesia 30 ML UDCUP PO PRN (07:51)
[2019-05-09] MEDS: Enoxaparin Sodium 60 MG/0.6 ML SYRINGE SC SCH ×2 (09:22→22:02)
[2019-05-09] MEDS: Prenatal Vitamin 1 TAB PO SCH (09:27)
[2019-05-09] MEDS: Docusate Calcium (SURFAK) 240 MG CAP PO SCH ×2 (09:27→22:03)
[2019-05-09 10:10] LABS: ALT (SGPT) 9 U/L (8-55); AST (SGOT) 18 U/L (5-34); Albumin 2.5 g/dL (3.5-5.0); Alkaline Phosphatase 93 U/L (40-110); Anion Gap 11 mmol/L (10-20); BUN (Urea Nitrogen) 4 mg/dL (7.0-18.7); Bilirubin, Total 0.2 mg/dL (0.2-1.2); Calc. Creatinine Clearance 339 mL/min (70-130); Calcium 8.2 mg/dL (7.8-10.44); Carbon Dioxide 24 mmol/L (22-29); Chloride 106 mmol/L (98-107); Estimated GFR-MDRD Greater than 90; Globulin 2.9 g/dL (2.4-3.5); Glucose 107 mg/dL (70-105); Protein, Total 5.4 g/dL (6.0-8.3); Sodium 137 mmol/L (136-145); Uric Acid 5.2 mg/dL (2.6-6.0)
[2019-05-09] MEDS ORDERED: Ibuprofen 800 MG TAB PO SCH (13:00)
[2019-05-09] MEDS ORDERED: Ibuprofen 100 MG/5 ML UDCUP PO SCH (14:45)
[2019-05-09] MEDS: Ibuprofen 100 MG/5 ML UDCUP PO SCH (21:59)
[2019-05-10] MEDS: Ibuprofen 100 MG/5 ML UDCUP PO SCH (05:14)
[2019-05-10] MEDS: Acetaminophen 650 MG Suppository PR SCH ×2 (05:27→13:33)
--- NOTE | 2019-05-10 07:40 | PDOC.PP ---
Post Progress Note Post Day #: 3 Subjective: Patient resting comfortably in bed. States she feels better today. She was able to take motrin and norco for her pain and feels better. She is still using the heating pad which helps too. She is tolerating PO, walking, passing gas. Denies any fever, chills, SOB, chest pain. Mild abdominal pain. Minimal lochia. PO intake tolerated: yes Flatus: yes Ambulation: yes Vital Signs (12 hours) Temp Pulse Resp BP Pulse Ox 05/10/19 05:11 98.6 F 83 16 134/79 98 05/09/19 23:49 98.8 F 78 14 140/77 99 Weight Weight 147.418 kg - Physical Examination General: NAD Cardiovascular: no m/r/g, RRR Respiratory: clear to auscultation bilaterally, non-labored breathing Abdominal: + bowel sounds, lochia (minimal), no distention, appropriately TTP Fundus firm & at: umbilicus Skin: CS incision dry & intact, no rash Neurological: no gross focal deficits Psychiatric: A&Ox3, normal affect Result Diagrams: 05/08/19 05:00 05/09/19 09:46 Additional Labs: Post Labs Blood Type A POSITIVE 05/06/19 06:18 Hep Bs Antigen Non-Reactive S/CO (NonReactive) 05/06/19 06:18 (1) Morbid obesity Code(s): E66.01 - MORBID (SEVERE) OBESITY DUE TO EXCESS CALORIES Status: Acute (2) Term Code(s): Z34.90 - ENCNTR FOR SUPRVSN OF NORMAL , UNSP, UNSP TRIMESTER Status: Acute - Assessment/Plan 24yo [id number] who delivered viable F @ 38.6wks on 05/07 @ 1028 via pLTCS due to failure to progress. #Term delivery of sIUP - Routine PP care - Motrin MICHAEL, tylenol/norco PRN for pain. Encouraged to take pain meds as needed. Will send home with appropriate medications. - H/H appropriate drop, patient asymptomatic. - Wound vac in place - cl/dr/intact. - Tolerating PO. Encouraged ambulation. Passing flatus. GBS Bacteruria - adequately treated gHTN - BPs improved since yesterday. Pre-E work up neg on 05/09. Will continue to monitor in the outpatient setting. DVT Ppx: lovenox BID Dispo: discharge later today Case discussed with Dr. Cali Addendum - Attending - Attending Attestation Date/Time: 05/10/19 1011 I personally evaluated the patient and discussed the management with Dr. Vargas I agree with the History, Examination, Assessment and Plan documented above with any addition or exceptions noted below. BP WNL overnight but 140s/90 this morning. Discussed Pre-e sx. Title 19 completed for BP cuff and will monitor outpatient. D/c home today v. B&B pending bilirubin on baby.
[2019-05-10 08:19] VITALS: BP 145/82; TEMP 98.2
[2019-05-10] MEDS: Enoxaparin Sodium 60 MG/0.6 ML SYRINGE SC SCH (09:15)
[2019-05-10] MEDS: Docusate Calcium (SURFAK) 240 MG CAP PO SCH (09:19)
[2019-05-10] MEDS: Prenatal Vitamin 1 TAB PO SCH (09:19)
== END 2019-05-10 13:30 | disposition home or self-care (01) | DRG 788 ==
LOC: L&D/OP 22:29 → L&D 05-06 07:04 → 3SW 05-07 14:35
PROVIDERS: ADMIT Family Medicine; ATTEND Family Medicine
PROC: 10D00Z1 Extraction of Products of Conception, Low, Open Approach (ICD-10-PCS; principal; 2019-05-07)
PROC: 10907ZC Drainage of Amniotic Fluid, Therapeutic from Products of Conception, Via Natural or Artificial Opening (ICD-10-PCS; 2019-05-07)
PROC: 3E0P7VZ Introduction of Hormone into Female Reproductive, Via Natural or Artificial Opening (ICD-10-PCS; 2019-05-07)
PROC: 3E033VJ Introduction of Other Hormone into Peripheral Vein, Percutaneous Approach (ICD-10-PCS; 2019-05-07)
DX: O13.4 Gestational [pregnancy-induced] hypertension without significant proteinuria, complicating childbirth (principal); O99.214 Obesity complicating childbirth; E66.01 Morbid (severe) obesity due to excess calories; O36.63X0 Maternal care for excessive fetal growth, third trimester, not applicable or unspecified; O99.824 Streptococcus B carrier state complicating childbirth; O61.1 Failed instrumental induction of labor; O62.0 Primary inadequate contractions; Z3A.38 38 weeks gestation of pregnancy; Z37.0 Single live birth
CPT/HCPCS: 36415; 51702; 80053; 82570; 84156; 84550; 85025; 85027; 85610; 85730; 86780; 86850; 86900; 86901; 87340; 87491; 87591; 99285; J0171; J0456; J0595; J0690; J1200; J1650; J1885; J2001; J2270; J2274; J2405; J2540; J2590; J3490

== ENCOUNTER 2020-09-30 01:35 | Emergency (ER) | payer OTHER ==
[2020-09-30 03:17] LABS: #Basophils 0.1 thou/uL (0.0-0.2); #Eosinphils 0.1 thou/uL (0.0-0.7); #Lymphocytes 3.1 thou/uL (1.20-3.40); #Neutrophils 6.1 thou/uL (1.40-6.50); %Basophils 0.9 % (0.0-1.0); %Eosinophils 1.2 % (0.0-10.0); %Lymphocytes 29.4 % (21.0-51.0); %Monocytes 9.8 % (0.0-10.0); %Neutrophils 58.6 % (42.0-75.0); Hemoglobin 13.7 g/dL (12.0-16.0); Mean Corpuscular HGB CONC 32.7 g/dL (32.0-36.0); Mean Corpuscular Hemoglobin 28.7 pg (27.0-31.0); Mean Corpuscular Volume 87.8 fL (78.0-98.0); Mean Platelet Volume 8.5 fL (7.4-10.4); Platelet Count 287 thou/uL (130-400); RBC Distribution Width 12.6 % (11.5-14.5); Red Blood Cell (RBC) Count 4.77 mill/uL (4.20-5.40); White Blood Cell (WBC) Count 10.4 thou/uL (4.8-10.8)
[2020-09-30 03:29] LABS: BHCG - Serum Negative (NEGATIVE); Pregs Control Background? CLEAR/WHITE (CLR/WHITE); Pregs Control Bar Appear? YES (CONTROL BAR)
[2020-09-30 03:37] LABS: ALT (SGPT) 21 U/L (8-55); AST (SGOT) 20 U/L (5-34); Albumin 3.8 g/dL (3.5-5.0); Alkaline Phosphatase 77 U/L (40-110); Anion Gap 11 mmol/L (10-20); BUN (Urea Nitrogen) 14 mg/dL (7.0-18.7); Bilirubin, Total 0.4 mg/dL (0.2-1.2); Calc. Creatinine Clearance 0 mL/min (70-130); Calcium 8.6 mg/dL (7.8-10.44); Carbon Dioxide 22 mmol/L (22-29); Chloride 106 mmol/L (98-107); Globulin 3.6 g/dL (2.4-3.5); Glucose 101 mg/dL (70-105); Potassium 4.2 mmol/L (3.5-5.1); Protein, Total 7.4 g/dL (6.0-8.3); Sodium 135 mmol/L (136-145)
[2020-09-30] MEDS ORDERED: Acetaminophen 500 MG TAB ONE (03:56)
[2020-09-30] MEDS ORDERED: Iopamidol-370 76% 500 ML 1 ML ONE (09:53)
== END 2020-09-30 05:20 | disposition home or self-care (01) ==
LOC: ERS 01:35
DX: J02.9 Acute pharyngitis, unspecified (principal); K08.89 Other specified disorders of teeth and supporting structures
CPT/HCPCS: 70491; 80053; 84703; 85025; Q9967

== ENCOUNTER 2021-07-27 22:51 | Emergency (ER) | payer OTHER, BC ==
[2021-07-28] MEDS ORDERED: Ketorolac Tromethamine 30 MG/ML VIAL ONE (00:05)
== END 2021-07-28 00:10 | disposition home or self-care (01) ==
LOC: ERS 22:51
DX: S43.401A Unspecified sprain of right shoulder joint, initial encounter (principal); E66.9 Obesity, unspecified; X50.0XXA Overexertion from strenuous movement or load, initial encounter; Y93.F2 Activity, caregiving, lifting; Y92.239 Unspecified place in hospital as the place of occurrence of the external cause; Z68.45 Body mass index [BMI] 70 or greater, adult
CPT/HCPCS: 96372; J1885

== ENCOUNTER 2022-04-22 20:39 | Emergency (ER) | payer BC, OTHER ==
[2022-04-22] MEDS ORDERED: Acetaminophen 500 MG TAB ONE (21:35)
[2022-04-22] MEDS ORDERED: Ibuprofen 800 MG TAB ONE (21:35)
[2022-04-22] MEDS ORDERED: Lidocaine 1% PF 5 ML VIAL ONE (21:35)
[2022-04-22] MEDS ORDERED: cefTRIAXone\\ROCEPHIN 1 GM VIAL ONE (21:35)
[2022-04-22] MEDS ORDERED: Ibuprofen 100 MG/5 ML UDCUP ONE (21:41)
[2022-04-22] MEDS ORDERED: Acetaminophen 325 MG/10.15 ML UDCUP ONE ×2 (21:41→21:46)
[2022-04-22] MEDS ORDERED: Bupivacaine 0.25% 10 ML VIAL ONE (21:59)
== END 2022-04-22 22:44 | disposition home or self-care (01) ==
LOC: ERS 20:39
DX: K04.7 Periapical abscess without sinus (principal); F17.290 Nicotine dependence, other tobacco product, uncomplicated
CPT/HCPCS: 96372; 99282; J0696; S0020

== ENCOUNTER 2022-09-04 00:33 | Emergency (ER) | payer OTHER | END 2022-09-04 03:33 | disposition home or self-care (01) | LOC: ERS 00:33 | DX: G56.03 Carpal tunnel syndrome, bilateral upper limbs (principal); E66.9 Obesity, unspecified; F17.290 Nicotine dependence, other tobacco product, uncomplicated | CPT/HCPCS: 99282 ==